=== PATIENT | female | born 1965 | race Two or more races ===

== ENCOUNTER 2021-03-20 20:31 | Emergency (ER) | payer OTHER ==
[~2021-03-20] VITALS: Ht 154.9 cm; Wt 49.4 kg
[2021-03-20] MEDS ORDERED: LEVOCARNIT100 MG/1 M (21:14)
[2021-03-20] MEDS ORDERED: PROGESTERONE200 MG (21:15)
== END 2021-03-20 22:59 | disposition home or self-care (01) ==
LOC: ER 20:31
DX: S01.112A Laceration without foreign body of left eyelid and periocular area, initial encounter (principal); X15.8XXA Contact with other hot household appliances, initial encounter; Y92.89 Other specified places as the place of occurrence of the external cause

== ENCOUNTER 2021-04-21 20:59 | Emergency (ER) | payer OTHER ==
[~2021-04-21] VITALS: Ht 154.9 cm; Wt 48.5 kg
[~2021-04-21 20:59] MED LIST: LEVOCARNIT100 MG/1 M; PROGESTERONE200 MG
== END 2021-04-21 22:38 | disposition home or self-care (01) ==
LOC: ER 20:59
DX: H11.32 Conjunctival hemorrhage, left eye (principal)

== ENCOUNTER 2024-12-19 16:29 | Emergency (ER) | payer OTHER ==
[~2024-12-19] VITALS: Ht 157.5 cm; Wt 49.4 kg
[2024-12-19] MEDS ORDERED: CEFTRIAXONE SODIUM 1,000 MG VIAL ONE (17:29)
[2024-12-19] MEDS ORDERED: DIPHTH,PERTUSS(ACELL),TET VAC 0.5 ML SYRINGE IM ONE (17:30)
[2024-12-19] MEDS ORDERED: TETANUS & DIPHTHERIA TOX,ADULT 0.5 ML VIAL IM ONE (17:30)
[2024-12-19] MEDS ORDERED: CEFTRIAXONE SODIUM 1,000 MG VIAL IM ONE (17:30)
[2024-12-19] MEDS ORDERED: LIDOCAINE HCL 1% 10ML VIAL PERCUT ONE (17:30)
[2024-12-19] MEDS ORDERED: LIDOCAINE HCL 1% 10ML VIAL ONE (17:31)
[2024-12-19] MEDS ORDERED: PEPCID AC20 MG PO (18:24)
[2024-12-19] MEDS ORDERED: CEFUROXIME500 MG PO (18:24)
== END 2024-12-19 19:09 | disposition home or self-care (01) ==
LOC: ER 16:29
DX: S61.222A Laceration with foreign body of right middle finger without damage to nail, initial encounter (principal); W45.8XXA Other foreign body or object entering through skin, initial encounter; Y93.89 Activity, other specified; Y92.89 Other specified places as the place of occurrence of the external cause; Z91.013 Allergy to seafood

== ENCOUNTER 2024-12-29 11:19 | Emergency (ER) | payer OTHER ==
[~2024-12-29] VITALS: Ht 154.9 cm; Wt 49.4 kg
[~2024-12-29 11:19] MED LIST changes: +CEFUROXIME500 MG PO; +PEPCID AC20 MG PO
== END 2024-12-29 14:30 | disposition home or self-care (01) ==
LOC: ER 11:19
DX: Z48.02 Encounter for removal of sutures (principal); Z91.013 Allergy to seafood